=== PATIENT | female | born 1945 ===

== ENCOUNTER 2021-08-27 17:12 | Emergency (ER) | payer MEDICARE | END 2021-08-27 18:36 | disposition home or self-care (01) | LOC: EDBD 17:12 → ER1 17:12 | DX: U07.1 COVID-19 (principal); I11.0 Hypertensive heart disease with heart failure; I50.9 Heart failure, unspecified; Z90.49 Acquired absence of other specified parts of digestive tract; Z79.01 Long term (current) use of anticoagulants | CPT/HCPCS: 99283 ==